=== PATIENT | male | born 1970 | race Caucasian/White ===

== ENCOUNTER 2017-01-08 19:14 | Emergency (ER) | payer OTHER ==
[~2017-01-08] VITALS: Ht 157.5 cm; Wt 59.0 kg
[~2017-01-08 19:14] MED LIST: AMARYL 2 MG2 MG PO; ASPIR 8181 MG PO; ATORVASTATIN CA20 MG PO; JANUMET 1000 MG1 TAB PO; PERCOCET 325 MG1 TA2 PO; PRILOSEC OTC20 MG PO; PROAIR HFA0.09 MG/Ac INH; PROMETHAZINE HC25 M3 PO; TYLENOL #31 TAB PO; ZOFRAN ODT4 MG PO; ZOFRAN4 M2 PO
--- NOTE | 2017-01-08 19:51 | ED HAND/WRIST INJURY COMPLAINT ---
History of Present Illness General Chief Complaint: Hand or Wrist Injury Stated Complaint: S/P FALL L WRIST PAIN Source: patient Exam Limitations: no limitations Vital Signs & Intake/Output Vital Signs & Intake/Output Vital Signs Date Time Temp Pulse Resp B/P Pulse O2 O2 Flow FiO2 Ox Delivery Rate 01/08 2100 98.4 81 18 139/63 98 Room Air 01/08 1938 97.3 93 18 159/79 98 Room Air Allergies Coded Allergies: NO KNOWN ALLERGIES (07/29/12) Reconcile Medications Albuterol Sulfate (Proair Hfa) 90 MCG HFA.AER.AD 2 PUF INH AD PRN ASTHMA ( Reported) Atorvastatin Calcium 10 MG TABLET 1 TAB PO DAILY CHOLESTEROL (Reported) Fluticasone/Salmeterol (Advair 250-50 Diskus) 250 MCG-50 MCG/DOSE BLST.W.DEV 1 PUF INH BID ASTHMA (Reported) Glimepiride 2 MG TABLET 1 TAB PO DAILY DM (Reported) Sitagliptin Phos/Metformin HCl (Janumet 50-1,000 MG Tablet) 50 MG-1,000 MG TABLET 1 TAB PO BID DM (Reported) Triage Nurses Notes Reviewed? yes Occurred: just prior to arrival Duration: day(s): (4), constant, continues in ED Timing: recent history Severity: moderate, severe Pain/Injury Location: Left: Wrist, Hand. No Modifying Factors: none HPI: 46-year-old male comes into emergency room for evaluation of left wrist pain and hand pain. Patient reports that he had slipped and fallen the ice about 4 days ago. Patient reports that he's been having pain since then. Sharp. Limited range of motion. Denies any trauma or injury anywhere else on the body. Patient comes into emergency room for further evaluation. (DAVI APPLE) Past History Medical History Any Pertinent Medical History? see below for history Neurological: NONE EENT: NONE Cardiovascular: HYPERTRIGLYCERIDEMIA Respiratory: asthma Gastrointestinal: pancreatitis Hepatic: NONE Renal: NONE Musculoskeletal: NONE Psychiatric: NONE Endocrine: diabetes Blood Disorders: NONE Cancer(s): NONE CONSULTING SERVICES MANAGER/Reproductive: NONE Surgical History Surgical History: N Psychosocial History What is your primary language Yakut Family History Hx Contributory? No (DAVI APPLE) Review of Systems Review of Systems Constitutional: Reports: no symptoms. EENTM: Reports: no symptoms. Respiratory: Reports: no symptoms. Cardiovascular: Reports: no symptoms. GI: Reports: no symptoms. Genitourinary: Reports: no symptoms. Musculoskeletal: Reports: see HPI. Skin: Reports: no symptoms. Neurological/Psychological: Reports: no symptoms. Hematologic/Endocrine: Reports: no symptoms. Immunologic/Allergic: Reports: no symptoms. All Other Systems: Reviewed and Negative (DAVI APPLE) Physical Exam Physical Exam General Appearance: well developed/nourished, mild distress Head: atraumatic Eyes: Bilateral: normal appearance. Ears, Nose, Throat: normal ENT inspection, hearing grossly normal Neck: normal inspection Cardiovascular/Respiratory: no respiratory distress Back: normal inspection Wrist Left: soft tissue tenderness, limited range of motion Hand Left: normal inspection, normal range of motion Hand Right: normal inspection Neurologic/Tendon: normal sensation, normal motor functions, normal tendon functions, responds to pain, no evidence tendon injury, no pulse deficit, no snuffbox tenderness Skin: intact, normal color, warm/dry Lymphatic: no anterior cervical flores (DAVI APPLE) Progress Differential Diagnosis: contusion, dislocation, fracture, gout, paronychia, septic arthritis, sprain, tenosynovitis Plan of Care: Orders Procedure Date/time Status Durable Medical Equipment 01/08 2055 Active Diagnostic Imaging: Viewed by Me: Radiology Read. Discussed w/RAD: Radiology Read. Radiology Impression: SERVICE DATE: 01/08/17 EXAM TYPE: RAD - XRY-HAND, TWO VIEWS L; XRY-WRIST COMPLETE-LEFT EXAMINATION: LEFT HAND RADIOGRAPHS. CLINICAL INFORMATION: Trauma. Pain in the fingers and metacarpals. COMPARISON: Left wrist radiographs 11/26/2015. TECHNIQUE: 2 views of the left hand were obtained. 4 views of the left wrist were obtained. FINDINGS: There is no acute fracture or dislocation. Joint spaces are maintained. Proximal and distal carpal rows are intact. The radiocarpal joint is intact and the distal radioulnar joint is unremarkable. There is neutral ulnar variance. Soft tissues are unremarkable. IMPRESSION: Unremarkable radiographs of the left hand. No evidence of acute fracture or dislocation. (DAVI APPLE) Departure Departure Disposition: HOME OR SELF CARE Condition: Stable Clinical Impression Primary Impression: Sprain of left hand Referrals: JEFFRY HADLEY,ANILA MEJIA (PCP/Family) Additional Instructions: Ice. Rest. Motrin for pain. Elevation. Follow-up with orthopedic doctor provided if not better in 3-5 days. If symptoms do not improve you'll require further evaluation with possible repeat x-rays as well as evaluation by direct support specialist. Sprains can last anywhere from days to weeks. . Return to normal activity only after symptoms have resolved. Departure Forms: Customer Survey General Discharge Information (DAVI APPLE) PA/CHIEF HOSPITAL ADMINISTRATOR Co-Sign Statement Statement: ED Attending supervision documentation- [] I saw and evaluated the patient. I have also reviewed all the pertinent lab results and diagnostic results. I agree with the findings and the plan of care as documented in the PA's/CHIEF HOSPITAL ADMINISTRATOR's documentation. [X] I have reviewed the ED Record and agree with the PA's/CHIEF HOSPITAL ADMINISTRATOR's documentation. [] Additions or exceptions (if any) to the PAs/CHIEF HOSPITAL ADMINISTRATOR's note and plan are summarized below: [] (DALLIN HADLEY,MAX Stinson) Procedures Splinting Location: left wrist Manual Alignment Performed: No Pre-Made Type: velcro Splint: volar, thumb spica Splint Applied By: splint applied by me Pre-Proc Neuro Vasc Exam: normal Post-Proc Neuro Vasc Exam: normal (DAVI APPLE)
[2017-01-08] MEDS ORDERED: ATORVASTATIN CA10 M1 PO (20:28)
[2017-01-08] MEDS ORDERED: ADVAIR 250-501 EACH INH (20:28)
[2017-01-08] MEDS ORDERED: JANUMET 50-1,01 EACH PO (20:29)
[2017-01-08] MEDS ORDERED: PROAIR HFA8.5 GM INH (20:29)
[2017-01-08] MEDS ORDERED: GLIMEPIRIDE2 MG PO (20:29)
--- NOTE | 2017-01-08 20:36 | RADIOLOGY REPORT ---
EXAMINATION: LEFT HAND RADIOGRAPHS. CLINICAL INFORMATION: Trauma. Pain in the fingers and metacarpals. COMPARISON: Left wrist radiographs 11/26/2015. TECHNIQUE: 2 views of the left hand were obtained. 4 views of the left wrist were obtained. FINDINGS: There is no acute fracture or dislocation. Joint spaces are maintained. Proximal and distal carpal rows are intact. The radiocarpal joint is intact and the distal radioulnar joint is unremarkable. There is neutral ulnar variance. Soft tissues are unremarkable. IMPRESSION: Unremarkable radiographs of the left hand. No evidence of acute fracture or dislocation.
[2017-01-08 21:00] VITALS: BP 139/63
== END 2017-01-08 21:04 ==
LOC: ERH 19:14
DX: S63.502A Unspecified sprain of left wrist, initial encounter (principal); W00.0XXA Fall on same level due to ice and snow, initial encounter; Y93.9 Activity, unspecified; Y92.9 Unspecified place or not applicable
CPT/HCPCS: 73110-LT; 73120-LT